=== PATIENT | male | born 1995 | race African-American/Black ===

== ENCOUNTER 2020-01-15 10:34 | Emergency (ER) | payer OTHER, SELFPAY ==
--- NOTE | ~2020-01-15 | XR_ITS ---
XR hand LT min 3V DATE: 01/15/2020 11:19 INDICATION: Fall 1.5 weeks ago. Pain at first through second digits TECHNIQUE: 3 views COMPARISON: None FINDINGS: No fracture or dislocation, periosteal reaction or bone destruction. IMPRESSION: Negative Reviewed, dictated and finalized at location B. RTISING SALES REPRESENTATIVE IMPRESSION: Negative
[2020-01-15 11:00] VITALS: BP 117/48; PULSE 70; RESP 16; TEMP 36.7; O2SAT 100
--- NOTE | 2020-01-15 11:46 | ED.UPPEXIN ---
HPI - Extremity Injury (Upper) General Chief Complaint: Extremity Injury, Upper Stated Complaint: Fall Left hand pain Time Seen by Provider: 01/15/20 11:50 Source: patient and RN notes reviewed Mode of arrival: ambulatory Limitations: no limitations History of Present Illness HPI narrative: 24-year-old male who presents to [facility] care accompanied by significant other with complaints of injury to left hand which occurred when tried to catch himself on bathroom lavatory when he slipped getting out of shower which occurred about1.5 weeks ago. Patient states that he has been wrapping his hand with nicolás but has not been taking any anti-inflammatory medications for his discomfort. Patient is able to make full closed fist with full mobility of his hand noted. Patient states that discomfort is in dorsal hand region proximal 2nd finger area and also proximal 1st digit region and in web spacing between fingers, no swelling present.Denies any pain at rest, states pain is with gripping and use. MD complaint: injury to: left Onset (ago): week(s) (1.5) Other Extremity Injury: Left: hand Other injuries: none Handedness: right Place: home Severity: mild Relieving factors: none Exacerbating factors: movement of extremity and other (gripping and use for lifting) Context: fall (slipped tried to catch self with his left hand) Associated symptoms: denies other symptoms Treatments prior to arrival: other (Nicolás wrap) Related Data Home Medications Medication Instructions Recorded Confirmed No Home Medications 01/15/20 01/15/20 Allergies Allergy/AdvReac Type Severity Reaction Status Date / Time No Known Allergies Allergy Unverified 02/24/19 10:28 Review of Systems Review of Systems: Narrative: CONSTITUTIONAL: Denies fever, chills, or sweats. EYES: Denies visual changes, redness, or discharge. ENT: Denies rhinorrhea, congestion, sore throat, or otalgia. CARDIOVASCULAR: Denies chest pain, palpitations, or edema. RESPIRATORY: Denies cough or dyspnea. GASTROINTESTINAL: Denies abdominal pain, nausea, vomiting, or diarrhea. GENITOURINARY: Denies dysuria or hematuria. SKIN: Denies rash or itching. MUSCULOSKELETAL: Denies back pain, pain to left hand dorsal aspect proximal 2nd finger base and web space between 1st and 2nd finger, or myalgia. NEUROLOGIC: Denies headache, numbness, or weakness. PSYCHIATRIC: Denies anxiety or depression. All systems reviewed & are unremarkable except as noted in HPI and below PMFSH Past Medical History Medical History (Updated 01/16/20 @ 11:13 by Tracy Florence NP) Seizures Social History Social History (Updated 01/16/20 @ 11:14 by Tracy Florence NP) Smoking packs per day: 1 Smoking cigarettes per day: 20.0 Years smoked: 1.5 Smoking pack-years: 1.50 Smoking status: Current every day smoker Living arrangements: with family Gender identity (if verbalized by the patient): Male Comments At time of signature, agree with nursing past medical, social history. There is no relevant family history pertinent to the presenting complaint Exam Narrative: Exam Narrative: GENERAL: Well-appearing, well-nourished, and in no acute distress. HEAD: Normocephalic, atraumatic. EYES: PERRLA and EOMI. ENT: Nares clear, no rhinorrhea or epistaxis. Mucous membranes moist. NECK: Supple. CHEST: Clear to auscultation. No respiratory distress. HEART: Regular rate and rhythm. No murmur heard. Normal peripheral pulses. ABDOMEN: Soft, nontender, nondistended, normal active bowel sounds. EXTREMITIES: Normal range of motion. No edema.Pain to the left dorsal aspect of his left hand at proximal 2nd finger and proximal 1st digit area and web spacing between fingers, increases with lifting or gripping anything with his hand, strong left radial pulse, with brisk capillary refill to his fingers, denies any tingling or numbness to fingers or hand, full mobility noted. SKIN: Warm, dry, no rash. NEURO: No focal deficits. Alert and ariel
== END 2020-01-15 12:10 | disposition home or self-care (01) ==
PROVIDERS: Emergency Provider Registered Nurse
DX: S63.92XA Sprain of unspecified part of left wrist and hand, initial encounter (principal); W01.0XXA Fall on same level from slipping, tripping and stumbling without subsequent striking against object, initial encounter; F17.210 Nicotine dependence, cigarettes, uncomplicated
CPT/HCPCS: 73130; 99213; G0463